=== PATIENT | female | born 1985 | race Hispanic/Latino ===

== ENCOUNTER 2020-07-23 01:58 | Emergency (ER) | payer OTHER ==
[2020-07-23] MEDS ORDERED: Morphine 4 MG/ML VIAL ONE ×3 (02:29→04:38)
[2020-07-23] MEDS ORDERED: Ondansetron PF 4 MG/2 ML Vial ONE (02:30)
[2020-07-23] MEDS ORDERED: Sodium Chloride 0.9% 1,000 ML ONE ×2 (02:30→04:39)
[2020-07-23 03:15] LABS: BHCG - Serum Negative (NEGATIVE); Pregs Control Background? CLEAR/WHITE (CLR/WHITE); Pregs Control Bar Appear? YES (CONTROL BAR)
[2020-07-23 03:33] LABS: ALT (SGPT) 13 U/L (8-55); AST (SGOT) 15 U/L (5-34); Albumin 4.3 g/dL (3.5-5.0); Alkaline Phosphatase 64 U/L (40-110); Anion Gap 16 mmol/L (10-20); BUN (Urea Nitrogen) 22 mg/dL (7.0-18.7); Bilirubin, Total 0.4 mg/dL (0.2-1.2); Calc. Creatinine Clearance 0 mL/min (70-130); Calcium 9.1 mg/dL (7.8-10.44); Carbon Dioxide 21 mmol/L (22-29); Chloride 101 mmol/L (98-107); Globulin 3.4 g/dL (2.4-3.5); Glucose 105 mg/dL (70-105); Potassium 3.3 mmol/L (3.5-5.1); Protein, Total 7.7 g/dL (6.0-8.3)
[2020-07-23 03:34] LABS: CK (CPK) 60 U/L (29-168); CRP (Inflammatory) Less than 0.50 mg/dL (= or < 0.5); Lipase 20 U/L (8-78)
[2020-07-23 03:36] LABS: Hemoglobin 12.7 g/dL (12.0-16.0); Mean Corpuscular HGB CONC 32.1 g/dL (32.0-36.0); Mean Corpuscular Hemoglobin 26.5 pg (27.0-31.0); Mean Corpuscular Volume 82.5 fL (78.0-98.0); Mean Platelet Volume 8.9 fL (7.4-10.4); Platelet Count 279 thou/uL (130-400); RBC Distribution Width 11.6 % (11.5-14.5); Red Blood Cell (RBC) Count 4.79 mill/uL (4.20-5.40); White Blood Cell (WBC) Count 7.8 thou/uL (4.8-10.8)
[2020-07-23 03:37] LABS: %Basophils 1.2 % (0.0-1.0); %Eosinophils 2.8 % (0.0-10.0); %Lymphocytes 20.3 % (21.0-51.0); %Monocytes 8.1 % (0.0-10.0); %Neutrophils 67.6 % (42.0-75.0); Manual Diff?? YES
[2020-07-23 03:38] LABS: MDiff Complete? YES; Poikilocytosis MODERATE=16-30 cells (100X) (0-5/hpf)
[2020-07-23 03:39] LABS: Ovalocytes MODERATE= 6-15 cells (100X) (0-1/hpf)
[2020-07-23 03:44] LABS: Sodium 135 mmol/L (136-145)
[2020-07-23 03:57] LABS: Bilirubin Negative (Negative); Blood, Urine Negative (Negative); Clarity Clear (Clear); Glucose, Urine (Dipstick) Negative (Negative); Ketone, Urine 15 mg/dL (Negative); Leukocyte Negative (Negative); Nitrite Negative (Negative); Protein, Urine (Dipstick) Negative (Neg-Trace); Specific Gravity, Urine 1.025 (1.005-1.030); Urobilinogen 0.2 mg/dL (Less than 2)
[2020-07-23] MEDS ORDERED: Morphine 2 MG/ML SYRINGE ONE (04:38)
[2020-07-23] MEDS ORDERED: HYDROmorphone 0.5 MG/0.5 ML SYRINGE ONE (05:32)
--- NOTE | 2020-07-23 07:35 | CT ---
PRELIMINARY REPORT/[facility]/EMERGENCY AFTER HOURS PROCEDURE: EXAM: CT Abdomen and Pelvis with Intravenous Contrast CLINICAL HISTORY: RUQ PAIN; N/V TECHNIQUE: Axial computed tomography images of the abdomen and pelvis with intravenous contrast. CONTRAST: With; 100ML COMPARISON: None provided. FINDINGS: LUNG BASES: No basilar airspace consolidation or pleural effusion. LIVER: Unremarkable. GALLBLADDER AND BILE DUCTS: The gallbladder is hydropic and contains gallstones. No biliary ductal di latation. Questionable mural edema of the gallbladder wall at the interface with the liver. No significant pericholecystic fluid. PANCREAS: Unremarkable. SPLEEN: Unremarkable. ADRENAL GLANDS: Unremarkable. KIDNEYS, URETERS, AND BLADDER: Unremarkable. No hydronephrosis or nephrolithiasis. No ureteral or venancio dder calculi. STOMACH AND BOWEL: No obstruction. No wall thickening. No CT evidence of colitis or acute diverticuli tis. APPENDIX: No CT evidence for appendicitis. PERITONEUM: Small amount of free fluid in the cul-de-sac. LYMPH NODES: No lymphadenopathy. REPRODUCTIVE: 2.7 cm rim-enhancing right ovarian cyst. VASCULATURE: No aortic aneurysm. BONES: Mild degenerative changes of the lower lumbar spine. ABDOMINAL WALL AND SOFT TISSUES: Unremarkable. IMPRESSION: The gallbladder is hydropic and contains gallstones. No biliary ductal dilatation. Ques tionable mural edema of the gallbladder wall at the interface with the liver. No significant pericholecystic fluid. Findings are not specific but may be seen in the setting of acute cholecystit is and right upper quadrant ultrasound is recommended for further evaluation. 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 Anna Newsome of [facility]. Transcribed Date/Time: 07/23/2020 7:52 AM
--- NOTE | 2020-07-23 07:35 | ULT ---
PRELIMINARY REPORT/[facility]/EMERGENCY AFTER HOURS PROCEDURE: EXAM: US Abdomen Limited, Right Upper Quadrant. CLINICAL HISTORY: RUQ PAIN THAT STARTED LAST NIGHT AROUND 10:00; CT DONE EARLIER; GB ISSUES VISUALIZE D AT THAT TIME; POSITIVE TYLER. LIVER APPEARED TO HAVE A FOCAL FATTY APPEARANCE. TECHNIQUE: Real-time ultrasound of the right upper quadrant with image documentation. 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 GALLBLADDER: Borderline wall thickening measuring up to 4 mm. There are numerous shadowing gallstone s. The gallbladder is distended with fluid. Positive sonographic Tyler sign. COMMON BILE DUCT: No dilation. PANCREAS: Unremarkable as visualized. The distal pancreas is obscured by overlying bowel gas. RIGHT KIDNEY: Unremarkable. No hydronephrosis. IMPRESSION: Gallbladder distended with fluid and gallstones. Borderline wall thickening. Positive sonographic Tyler sign. Findings are consistent with acute cholecystitis in the appropriate clinical setting. ELECTRONICALLY SIGNED BY: Anna Newsome MD Jul 23, 2020 5:27:49 AM ANDROID IOS DEVELOPER FINAL REPORT GALLBLADDER ULTRASOUND: I agree with the report given by Dr. Anna Newsome of [facility]. Transcribed Date/Time: 07/23/2020 7:55 AM
--- NOTE | 2020-07-23 07:36 | RAD ---
XR Chest 1 View Portable HISTORY: Preoperative evaluation COMPARISON: 06/15/2015 FINDINGS: The heart size is normal. The lungs are well expanded without focal areas of consolidation, pneumothorax or pleural effusions. IMPRESSION: No radiographic evidence of acute cardiopulmonary process.
[2020-07-23] MEDS ORDERED: Iopamidol 370 76% 100 ML VIAL ONE (12:41)
== END 2020-07-23 06:55 | disposition short-term general hospital (02) ==
LOC: MADERS 01:58
DX: K80.00 Calculus of gallbladder with acute cholecystitis without obstruction (principal)
CPT/HCPCS: 71045; 74177; 76705; 80053; 81003; 82150; 82550; 83690; 84703; 85025; 86140; 96361; 96374; 96375; 96376; J1170; J2270; J2405; J7050; Q9967